=== PATIENT | female | born 1985 | race Caucasian/White ===

== ENCOUNTER 2018-09-29 10:05 | Day surgery (SDC) | payer OTHER ==
[2018-09-29] MEDS ORDERED: Tylenol #3 PO (12:53)
[2018-09-29] MEDS ORDERED: DOXYCYCLINE HY100 M3 PO (12:53)
== END 2018-09-29 19:25 | disposition home or self-care (01) ==
LOC: CIR.AMB 10:05
DX: D25.0 Submucous leiomyoma of uterus (principal); N84.0 Polyp of corpus uteri